=== PATIENT | male | born 1945 | race Two or more races ===

== ENCOUNTER 2021-07-14 03:45 | Inpatient (IN) | payer MEDICARE, OTHER ==
[~2021-07-14] VITALS: Ht 175.3 cm; Wt 77.1 kg
[2021-07-14] MEDS ORDERED: LIDOCAINE 2% JEL UROJET 10 ML MM ONE (04:16)
[2021-07-14] MEDS ORDERED: IV NS 0.9% 1,000 ML BAG IV ONE (04:30)
[2021-07-14 05:45] LABS: BASOPHILS % (AUTO) 0.1 % (0.0-2.0); HEMATOCRIT 41 % (39-51); HEMOGLOBIN 13.3 g/dL (13.5-17.5); LYMPHOCYTES # (AUTO) 0.3 K/uL (0.8-4.8); LYMPHOCYTES % (AUTO) 2.1 % (20.0-44.0); MEAN CORPUSCULAR HGB CONC 33 g/dl (31.0-36.0); MEAN CORPUSCULAR VOLUME 104 fL (80-96); MONOCYTES # (AUTO) 1.4 K/uL (0.1-1.30); NEUTROPHILS # (AUTO) 14.3 K/uL (1.8-8.9); NEUTROPHILS % (AUTO) 88.8 % (43.0-81.0); PLATELET COUNT (AUTO) 289 K/uL (150-450); RED BLOOD CELL COUNT(AUTO) 3.91 MIL/uL (4.5-6.0); WHITE BLOOD COUNT (AUTO) 16.1 K/uL (4.3-11.0)
[2021-07-14 06:01] LABS: CALCIUM, SERUM 8.2 mg/dL (8.5-10.1); CARBON DIOXIDE 23 mmol/L (21-32); CHLORIDE 100 mmol/L (98-107); CREATININE 1.7 mg/dL (0.6-1.3); GLUCOSE 307 mg/dL (74-106); SODIUM SERUM 136 mmol/L (136-145); UREA NITROGEN, BLOOD 38 mg/dL (7-18)
[2021-07-14 06:11] LABS: ALANINE AMINOTRANSFERASE 42 U/L (12-78); ALBUMIN 3.3 g/dL (3.4-5.0); ALKALINE PHOSPHATASE 94 U/L (46-116); ASPARTATE AMINOTRANSFERASE 97 U/L (15-37); BILIRUBIN,TOTAL 0.9 mg/dL (0.2-1.0); TOTAL PROTEIN, SERUM 7.4 g/dL (6.4-8.2)
[2021-07-14 06:55] LABS: CREATINE KINASE, TOTAL 421 U/L (39-308)
[2021-07-14 07:11] LABS: BILIRUBIN,URINE NEGATIVE (NEGATIVE); COLOR,URINE YELLOW (YELLOW); LEUKOCYTE ESTERASE ,URINE NEGATIVE (NEGATIVE); NITRITE, URINE NEGATIVE (NEGATIVE); PH,URINE 5.5 (5.0-8.0); PROTEIN,URINE TRACE mg/dl (NEGATIVE); UGLUCOSE >=1000 mg/dL (NEGATIVE); UROBILINOGEN,URINE 0.2 EU/dL (0.2)
[2021-07-14 07:24] LABS: BACTERIA,URINE None seen /HPF (None Seen); RBC,URINE 0-2 /HPF (0-2); SQUAMOUS EPITHELIAL CELL,UR Few /HPF (None Seen); WBC,URINE 0-2 /HPF (0-3)
[2021-07-14] MEDS ORDERED: CEFTRIAXONE 1 G in IV D5W 50 ML IV ONE (08:00)
[2021-07-14] MEDS ORDERED: AZITHROMYCIN 500 MG in IV D5W 250 ML IV ONE (08:00)
[2021-07-14] MEDS ORDERED: IV NS 0.9% 1,000 ML IV ONE (08:00)
[2021-07-14 08:58] LABS: D-DIMER 5.04 mg/L(FEU (0.17-0.50)
[2021-07-14] MEDS ORDERED: ACETAMINOPHEN 650 MG/SUPP.RECT RC PRN (09:00)
[2021-07-14] MEDS ORDERED: ACETAMINOPHEN 325 MG TABLET PO PRN (09:00)
[2021-07-14] MEDS ORDERED: ONDANSETRON HCL/PF 4 MG/2 ML VIAL IVP PRN (09:00)
[2021-07-14] MEDS ORDERED: ALBUTEROL SULFATE 8 GM HFA.AER.AD IH PRN (09:00)
[2021-07-14] MEDS ORDERED: DEXAMETHASONE SOD PHOSPHATE 4 MG/ML VIAL ONE (09:40)
[2021-07-14] MEDS: DEXAMETHASONE SOD PHOSPHATE 4 MG/ML VIAL IV SCH (09:45)
[2021-07-14 10:18] LABS: BILIRUBIN,DIRECT 0.2 mg/dL (0.0-0.2)
[2021-07-14] MEDS: DOXYCYCLINE 100 MG in IV D5W 100 ML IV SCH ×2 (11:00→21:05)
[2021-07-14] MEDS: APIXABAN 5 MG TABLET PO SCH ×2 (12:00→17:25)
[2021-07-14] MEDS ORDERED: APIXABAN 5 MG TABLET ONE (13:06)
[2021-07-14] MEDS ORDERED: DEXTROSE 50%-WATER 50 ML DISP.SYRIN IV PRN (15:30)
[2021-07-14] MEDS: INSULIN REGULAR, HUMAN 100 UNIT/ML 3 ML VIAL SQ PRN (17:26)
[2021-07-14] MEDS: BLOOD SUGAR DIAGNOSTIC 1 EACH STRIP VI SCH ×2 (17:33→22:00)
[2021-07-14] MEDS ORDERED: LISI20TA30 PO (19:54)
[2021-07-14] MEDS ORDERED: ATOR10TA PO (19:54)
[2021-07-14] MEDS ORDERED: LEVO5TAB29 PO (19:54)
[2021-07-14] MEDS ORDERED: TAMS-12 PO (19:54)
[2021-07-14] MEDS ORDERED: FINA5TAB11 PO (19:54)
[2021-07-14] MEDS ORDERED: GABA-532 PO (19:54)
[2021-07-14] MEDS ORDERED: PIOG30TA10 PO (19:54)
[2021-07-14 20:00] VITALS: BP 134/73
[2021-07-14] MEDS: *INSULIN REGULAR(HUMULIN R)HUM 100 UNIT/ML VIAL SQ PRN (21:35)
[2021-07-15] VITALS (8 sets, daily range): BP systolic 101–168; BP diastolic 54–78
[2021-07-15 06:37] LABS: ALANINE AMINOTRANSFERASE 34 U/L (12-78); ALBUMIN 2.6 g/dL (3.4-5.0); ALKALINE PHOSPHATASE 89 U/L (46-116); ASPARTATE AMINOTRANSFERASE 77 U/L (15-37); BILIRUBIN,TOTAL 0.8 mg/dL (0.2-1.0); CALCIUM, SERUM 7.7 mg/dL (8.5-10.1); CARBON DIOXIDE 20 mmol/L (21-32); CHLORIDE 107 mmol/L (98-107); GLUCOSE 114 mg/dL (74-106); HEMATOCRIT 39 % (39-51); HEMOGLOBIN 12.7 g/dL (13.5-17.5); LYMPHOCYTES # (AUTO) 0.8 K/uL (0.8-4.8); LYMPHOCYTES % (AUTO) 6.7 % (20.0-44.0); MEAN CORPUSCULAR HGB CONC 33 g/dl (31.0-36.0); MEAN CORPUSCULAR VOLUME 103 fL (80-96); MONOCYTES # (AUTO) 1.5 K/uL (0.1-1.30); MONOCYTES % (AUTO) 12.6 % (2.0-12.0); NEUTROPHILS # (AUTO) 9.6 K/uL (1.8-8.9); NEUTROPHILS % (AUTO) 80.7 % (43.0-81.0); PLATELET COUNT (AUTO) 283 K/uL (150-450); POTASSIUM 4.3 mmol/L (3.5-5.1); RED BLOOD CELL COUNT(AUTO) 3.76 MIL/uL (4.5-6.0); SODIUM SERUM 141 mmol/L (136-145); TOTAL PROTEIN, SERUM 6.7 g/dL (6.4-8.2); UREA NITROGEN, BLOOD 23 mg/dL (7-18); WHITE BLOOD COUNT (AUTO) 11.9 K/uL (4.3-11.0)
[2021-07-15 06:49] LABS: C-REACTIVE PROTEIN 7.8 mg/dL (0.0-0.9)
[2021-07-15] MEDS: BLOOD SUGAR DIAGNOSTIC 1 EACH STRIP VI SCH ×4 (07:26→23:25)
[2021-07-15] MEDS: DEXAMETHASONE SOD PHOSPHATE 4 MG/ML VIAL IV SCH (08:45)
[2021-07-15] MEDS: PANTOPRAZOLE 40 MG/PACK PACK PO SCH (08:45)
[2021-07-15] MEDS: CEFTRIAXONE 1 G in IV D5W 50 ML IV SCH (08:45)
[2021-07-15] MEDS: APIXABAN 5 MG TABLET PO SCH ×2 (08:50→16:36)
[2021-07-15] MEDS: DOXYCYCLINE 100 MG in IV D5W 100 ML IV SCH ×2 (09:52→20:06)
[2021-07-15] MEDS: INSULIN REGULAR, HUMAN 100 UNIT/ML 3 ML VIAL SQ PRN ×2 (11:17→16:37)
[2021-07-15] MEDS ORDERED: REMDESIVIR (CHARGED) 200 MG, *LOADING DOSE 1 EA in IV NS 0.9% 210 ML IV ONE (14:00)
[2021-07-15] MEDS ORDERED: ENALAPRILAT DIHYD. (2.5MG/2ML) 1.25 MG/ML VIAL IV PRN (22:30)
[2021-07-15] MEDS: *INSULIN REGULAR(HUMULIN R)HUM 100 UNIT/ML VIAL SQ PRN (23:27)
[2021-07-15] MEDS ORDERED: ENALAPRILAT INJ (1.25 MG/ML) 1.25 MG/ML VIAL IV ONE (23:59)
[2021-07-16] VITALS: BP 153/69
[2021-07-16 04:00] VITALS: BP 142/69
[2021-07-16] MEDS: BLOOD SUGAR DIAGNOSTIC 1 EACH STRIP VI SCH (06:42)
[2021-07-16] MEDS: INSULIN REGULAR, HUMAN 100 UNIT/ML 3 ML VIAL SQ PRN (06:51)
[2021-07-16 07:27] LABS: ALBUMIN 2.5 g/dL (3.4-5.0); BILIRUBIN,DIRECT 0.3 mg/dL (0.0-0.2); BILIRUBIN,TOTAL 0.8 mg/dL (0.2-1.0); CALCIUM, SERUM 8.3 mg/dL (8.5-10.1); POTASSIUM 3.7 mmol/L (3.5-5.1); TOTAL PROTEIN, SERUM 6.5 g/dL (6.4-8.2)
[2021-07-16 07:47] LABS: BASOPHILS % (AUTO) 0.1 % (0.0-2.0); HEMATOCRIT 36 % (39-51); LYMPHOCYTES # (AUTO) 0.7 K/uL (0.8-4.8); LYMPHOCYTES % (AUTO) 4.7 % (20.0-44.0); MEAN CORPUSCULAR HGB CONC 33 g/dl (31.0-36.0); MEAN CORPUSCULAR VOLUME 103 fL (80-96); MONOCYTES # (AUTO) 1.6 K/uL (0.1-1.30); MONOCYTES % (AUTO) 11.6 % (2.0-12.0); NEUTROPHILS # (AUTO) 11.8 K/uL (1.8-8.9); NEUTROPHILS % (AUTO) 83.6 % (43.0-81.0); PLATELET COUNT (AUTO) 267 K/uL (150-450); RED BLOOD CELL COUNT(AUTO) 3.49 MIL/uL (4.5-6.0); WHITE BLOOD COUNT (AUTO) 14.1 K/uL (4.3-11.0)
[2021-07-16 08:00] VITALS: BP 150/66
[2021-07-16] MEDS ORDERED: ENALAPRILAT INJ (1.25 MG/ML) 1.25 MG/ML VIAL IV PRN (08:30)
[2021-07-16] MEDS ORDERED: FINASTERIDE (5 MG) 5 MG TABLET PO SCH (09:00)
[2021-07-16] MEDS ORDERED: Medication Not On Formulary EA (Levocetirizine Dihydrochloride (Xyzal) 5 MG) PO SCH (09:00)
[2021-07-16] MEDS ORDERED: LISINOPRIL (20MG) 20 MG TABLET PO SCH (09:00)
[2021-07-16] MEDS ORDERED: PIOGLITAZONE HCL PO SCH (09:00)
[2021-07-16] MEDS ORDERED: ATORVASTATIN 10 MG TABLET PO SCH (09:00)
[2021-07-16] MEDS ORDERED: TAMSULOSIN 0.4 MG CAP.SR.24H PO SCH (09:00)
[2021-07-16] MEDS ORDERED: GABAPENTIN 100 MG CAPSULE PO SCH (09:00)
[2021-07-16] MEDS: CEFTRIAXONE 1 G in IV D5W 50 ML IV SCH (09:21)
[2021-07-16] MEDS: DOXYCYCLINE 100 MG in IV D5W 100 ML IV SCH (09:21)
[2021-07-16] MEDS: PANTOPRAZOLE 40 MG/PACK PACK PO SCH (09:21)
[2021-07-16] MEDS: DEXAMETHASONE SOD PHOSPHATE 4 MG/ML VIAL IV SCH (09:22)
[2021-07-16] MEDS: APIXABAN 5 MG TABLET PO SCH (09:27)
[2021-07-16] MEDS ORDERED: REMDESIVIR (CHARGED) 100 MG in IV NS 0.9% 100 ML IV SCH (14:00)
== END 2021-07-16 11:00 | disposition left against medical advice (07) | DRG 871 ==
LOC: ER 03:50 → TRANSITION 08:49 → TELE2 16:18
PROVIDERS: ADMIT Nurse Practitioner Acute Care; ATTEND Internal Medicine
PROC: XW033E5 Introduction of Remdesivir Anti-infective into Peripheral Vein, Percutaneous Approach, New Technology Group 5 (ICD-10-PCS; principal; 2021-07-15)
PROC: 05HB33Z Insertion of Infusion Device into Right Basilic Vein, Percutaneous Approach (ICD-10-PCS; 2021-07-15)
DX: A41.89 Other specified sepsis (principal); U07.1 COVID-19; J12.82 Pneumonia due to coronavirus disease 2019; J96.01 Acute respiratory failure with hypoxia; N17.0 Acute kidney failure with tubular necrosis; J15.9 Unspecified bacterial pneumonia; E87.2 Acidosis; D68.59 Other primary thrombophilia; E11.65 Type 2 diabetes mellitus with hyperglycemia; Z88.0 Allergy status to penicillin; E78.5 Hyperlipidemia, unspecified; I70.0 Atherosclerosis of aorta; E11.22 Type 2 diabetes mellitus with diabetic chronic kidney disease; I12.9 Hypertensive chronic kidney disease with stage 1 through stage 4 chronic kidney disease, or unspecified chronic kidney disease; Z79.01 Long term (current) use of anticoagulants; N18.9 Chronic kidney disease, unspecified
CPT/HCPCS: 36410; 36415; 71045-TC; 71250-TC; 80048-TC; 80053-TC; 80076-TC; 81001; 82248-TC; 82550-TC; 82553; 82728-TC; 82962-TC; 83605-TC; 83615-TC; 83880; 84484-TC; 85025-TC; 85378-TC; 85730-TC; 86140-TC; 87040-TC; 87081-TC; 87086-TC; 93970-TC; 97116-TC; 97530-TC; A4216; G0378; J0456; J0696; J1100; J1815; J3490; J7030; J7050; J7060